=== PATIENT | female | born 1965 | race Caucasian/White ===

== ENCOUNTER 2021-01-07 13:30 | Emergency (ER) | payer MEDICAID ==
[~2021-01-07] VITALS: Ht 154.9 cm; Wt 74.4 kg
[2021-01-07 13:30] VITALS: BP_SYST 154
[2021-01-07] MEDS ORDERED: DIPH-TET-PERTUS Vaccine 0.5 ML VIAL (ADACEL) I.M. ONE (15:00)
[2021-01-07] MEDS ORDERED: AMPICILLIN SODIUM/SULBACTAM NA 3 GM VIAL IM ONE (15:00)
[2021-01-07] MEDS ORDERED: HYDROcodone/ACETAMIN 5-325 MG TAB (NORCO/ VICODIN) PO ONE (15:00)
[2021-01-07] MEDS ORDERED: AMPICILLIN SODIUM/SULBACTAM NA 3 GM in NS 100 ML IV ONE (16:00)
[2021-01-07] MEDS ORDERED: LIDOCAINE/EPI 1% 1:100000 20 ML VIAL INJ ONE (16:07)
[2021-01-07] MEDS ORDERED: BACITRACIN 1 GM OINT TP ONE (21:27)
[2021-01-07] MEDS ORDERED: BACITRACIN ZINC 15 GM TOPICAL OINTMENT TP ONE (21:30)
[2021-01-07] MEDS ORDERED: SULF1TAB48 PO (22:40)
[2021-01-07] MEDS ORDERED: IBUP-1969 PO (22:40)
[2021-01-07 22:54] VITALS: BP_SYST 133
== END 2021-01-07 22:55 | disposition home or self-care (01) ==
LOC: SED 13:30
DX: S41.112A Laceration without foreign body of left upper arm, initial encounter (principal); Z79.899 Other long term (current) drug therapy; W45.8XXA Other foreign body or object entering through skin, initial encounter; Y93.89 Activity, other specified; Y92.89 Other specified places as the place of occurrence of the external cause; Y99.8 Other external cause status
CPT/HCPCS: 12035; 73060; 90471; 90715; 93922; 96365; 99285; J0295